=== PATIENT | female | born 1970 | race Caucasian/White ===

== ENCOUNTER → 2021-04-11 | Outpatient (CLI) | payer OTHER ==
[~2021-04-11] MED LIST: ADMELOG SO100 UNIT/1 SQ; ASPIRIN EC81 MG PO; AZELASTINE137 MCG/0.; BASAGLAR K100 UNIT/1 SQ; BENZONATATE100 MG PO; COZAAR 50MG TAB50 MG PO; CYCLOBENZAPRINE10 MG PO; DECADRON6 MG PO; DIFLUCAN 100 M100 MG PO; FLOVENT DISKUS50 MCG; GABAPENTIN300 MG PO; HYDROCODON-ACE1 EAC2 PO; ISOSORBIDE MONO30 MG PO; LEVOTHYROXINE200 MC2 PO; LEVOTHYROXINE50 MC1 PO; MECLIZINE HCL25 MG PO; MELOXICAM15 MG PO; OMEPRAZOLE40 MG PO; SENNA LAXATIVE8.6 MG PO; SINGULAIR10 MG PO; VISTARIL 25 MG25 MG PO; VITAMIN D PO; WELLBUTRIN SR200 MG PO; ZINC50 M2 PO; ZITHROMAX250 MG PO
== END ==
LOC: HEART 5 12:31
DX: R06.02 Shortness of breath (principal); M19.90 Unspecified osteoarthritis, unspecified site
CPT/HCPCS: 94010

== ENCOUNTER → 2021-05-01 | Outpatient (CLI) | payer OTHER | LOC: KOH-I 04-22 13:30 | DX: R09.02 Hypoxemia (principal); R06.02 Shortness of breath; Z86.16 Personal history of COVID-19 | CPT/HCPCS: 71250 ==